=== PATIENT | female | born 1930 | race African-American/Black ===

== ENCOUNTER 2018-07-08 01:42 | Inpatient (IN) | payer OTHER ==
--- NOTE | 2018-07-08 01:55 | PDOC ---
History of Present Illness - General Chief Complaint: Nausea/Vomiting Stated Complaint: VOMITTING Time Seen by Provider: 07/08/18 01:49 - History of Present Illness Initial Comments: 07/08/18 01:54 87 yo F with h/o DM, HLD, HTN, pacemaker placement, Dementia who p/w vomiting. Pt. non verbal, non communicative, severe dementia. Daughter (primary tip cementer ) at bedside to assist in report. Patient with 3 episodes of non bilious, non bloody emesis today following PO intake today. Patient with last bowel movement Wednesday07/03/18, but intermittent fecal discharge.+Normal flatulence. Patient in normal state of health yesterday. Patient at baseline mental status per daughter. Incontinent at baseline. Daily home health aide to assist patient with IADL,ADL's. Patient lives with daughter. Denies F/C, CP, SOB, Cough, Wheezing, Leg swelling, Urinary complaints, hematuria, BPR, LOC, weakness. PMHx: as noted above. Denies h/o abdominal surgery. ROS: as noted SHx: Distant smoking history. Denies h/o IVDA. Denies Etoh Allergies: NKDA Past History - Past Medical History Allergies/Adverse Reactions: Allergies Allergy/AdvReac Type Severity Reaction Status Date / Time No Known Allergies Allergy Verified 09/24/16 20:15 Home Medications: Ambulatory Orders Memantine HCl [Namenda -] 10 mg PO BID 11/05/14 Atorvastatin Ca [Lipitor] 20 mg PO HS 06/25/15 Ferrous Sulfate 1 tab PO DAILY 01/23/16 Acetaminophen [Tylenol .Regular Strength -] 325 mg PO BID 07/14/16 Brimonidine Tartrate [Alphagan 0.15% -] 1 drop OD BID 07/14/16 Latanoprost 0.005% Eye Drops [Xalatan 0.005% Eye Drops -] 1 drop OU HS 07/14/16 Metoprolol Tartrate 25 mg PO TID PRN 07/14/16 Sennosides [Senna -] 1 tab PO HS 07/14/16 Clonidine HCl 0.1 mg PO HS 07/08/18 Anemia: No Asthma: No Cancer: No Cardiac Disorders: No CVA: No COPD: No CHF: No Dementia: Yes Diabetes: No GI Disorders: Yes (constipation) Disorders: Yes (uti/bladder infection) HTN: Yes Hypercholesterolemia: Yes Liver Disease: No Seizures: Yes Thyroid Disease: No - Surgical History Cardiac Surgery: Yes (pacemaker insertion) - Immunization History Immunization Up to Date: Yes - Suicide/Smoking/Psychosocial Hx Smoking History: Never smoked Have you smoked in the past 12 months: No Number of Cigarettes Smoked Daily: 0 If you are a former smoker, when did you quit?: 40 yr ago Hx Alcohol Use: No Drug/Substance Use Hx: No Substance Use Type: None Hx Substance Use Treatment: No Review of Systems - Review of Systems Comments:: 07/08/18 01:54 Unable to obtain 13 point ROS inspection d/t mental state. *Physical Exam - Physical Exam Comments: 07/08/18 01:55 GENERAL: Awake, alert, in no acute distress. Non verbal, non communicative. HEAD: No signs of trauma, normocephalic, atraumatic EYES: PERRLA, EOMI, sclera anicteric, conjunctiva clear ENT: Auricles normal inspection, hearing grossly normal, nares patent, oropharynx clear without exudates. Moist mucosa NECK: Normal ROM, supple, no lymphadenopathy, JVD, or masses LUNGS: No distress, speaks full sentences, clear to auscultation bilaterally HEART: Regular rate and rhythm, normal S1 and S2, no murmurs, rubs or gallops, peripheral pulses normal and equal bilaterally. ABDOMEN: Soft, Mild diffuse abdominal ttp. Normoactive bowel sounds. No guarding, no rebound. No masses EXTREMITIES : Normal inspection, Normal range of motion, no edema. No clubbing or cyanosis. NEUROLOGICAL: Cranial nerves II through XII grossly intact. SKIN: Warm, Dry, normal turgor, no rashes or lesions noted ED Treatment Course - LABORATORY CBC & Chemistry Diagram: 07/08/18 02:50 07/08/18 03:30 Medical Decision Making - Medical Decision Making 07/08/18 02:14 87 yo F with h/o DM, HLD, HTN, Dementia ( non verbal, non communicative) who p/ w vomiting. HR 131, Temp 97, BP 205/101, O2 96 % RA. + Constipation, with scant watery stools. R/o SBO. CT AP to assess for intrabdominal pathology. Will assess for electrolyte abnml, toxic and metabolic derangements, acid base disturbances, and infection. ED Course: CBC,CMP, Cardiac, LA, Coags, Urine Cx. Blood Cx. VBG, NS EKG, CXR 07/08/18 02:30 EKG: Sinus tachycardia, with left anterior fascicular block. + LVH. Normal interval duration. 07/08/18 03:31 LA: 1.9 WBC: 11.8 07/08/18 04:42 CBC,CMP: Unremarkable Trop: Neg 07/08/18 06:40 Patient signed out to day team. Pending CT AP. *DC/Admit/Observation/Transfer Diagnosis at time of Disposition: Dementia Qualifiers: Dementia behavioral disturbance: without behavioral disturbance Hypertension Qualifiers: Hypertension type: essential hypertension Qualified Code(s): I10 - Essential ( primary) hypertension - Discharge Dispostion Condition at time of disposition: Fair Decision to Admit order: Yes - Referrals - Patient Instructions - Post Discharge Activity
[2018-07-08 02:03] VITALS: BMI 25.4
[2018-07-08] MEDS ORDERED: SODIUM CHLORIDE 0.9% 1000 ML INFUS.BAG IV ONE (02:22)
[2018-07-08 03:02] LABS: BASO % 0.5 % (0-2.0); EOS % 0.3 % (0-4.5); HEMATOCRIT 41.3 % (32.4-45.2); HEMOGLOBIN 13.7 GM/dL (10.7-15.3); LYMPH % 14.7 % (8-40); MCH 28.9 pg (25.7-33.7); MCHC 33.1 g/dl (32.0-36.0); MEAN CELL VOLUME 87.1 fl (80-96); MEAN PLT VOLUME 9.2 fl (7.5-11.1); MONO % 6.8 % (3.8-10.2); NEUT % 77.7 % (42.8-82.8); PLATELET COUNT 165 K/MM3 (134-434); RBC 4.74 M/mm3 (3.60-5.2); RDW 13.8 % (11.6-15.6); WHITE BLOOD COUNT 11.8 K/mm3 (4.0-10.0)
[2018-07-08 03:12] LABS: INR 1.08 (0.83-1.09); PROTHROMBIN TIME (PATIENT) 12.2 SEC (9.7-13.0)
[2018-07-08 03:23] LABS: PLATELET ESTIMATE DECREASED
[2018-07-08 03:36] LABS: VENOUS PH 7.42 (7.32-7.42); VENOUS PO2 38.7 mmHg (28-48)
--- NOTE | 2018-07-08 03:52 | PDOC ---
Attending Attestation - Resident Resident Name: Johnnie Puri - ED Attending Attestation I have performed the following: I have examined & evaluated the patient, The case was reviewed & discussed with the resident, I agree w/resident's findings & plan - HPI HPI: 07/08/18 03:48 87-year-old female history of dementia, diabetes, hypertension brought in by daughter with reports of vomiting and decreased PO intake today. No fevers or chills, constipated for 3 days but passing flatus, no surgical history. - Physicial Exam PE: 07/08/18 03:49 elevated bp, tachycardia, no fever alert, minimally verbal at baseline abd soft but distended, tender R>L with guarding. BS decreased - Critical Care Time Total Critical Care Time: 30 Critical Care Statement: The care of this patient involved high complexity decision making to prevent further life threatening deterioration of the patient 's condition and/or to evaluate & treat vital organ system(s) failure or risk of failure. - Medical Decision Making 07/08/18 03:50 87y/o F DM and dementia with weakness, decreased PO intake, vomiting today. Here , elevated BP likely 2/2 not tolerating meds, tachycardia likely 2/2 volume depletion. Tender abdomen, r/o obstruction, ischemia, infectious process. labs, ua ivf, anti-emetic, BP control ctap, cxr admit Heart Score/ECG Review #1 ECG reviewed & interpreted by me at: 02:16 General ECG Interpretation: Sinus Rhythm (tachy at 131), Normal Intervals (LAFB , LVH), No acute ischemic changes
[2018-07-08 04:07] LABS: ALBUMIN 3.8 g/dl (3.4-5.0); ANION GAP 10 MMOL/L (8-16); BILIRUBIN,TOTAL 0.5 mg/dL (0.2-1.0); BLOOD UREA NITROGEN 17 mg/dL (7-18); CALCIUM 9.2 mg/dL (8.5-10.1); CHLORIDE 108 mmol/L (98-107); CO2 26 mmol/L (21-32); CREATININE 0.9 mg/dL (0.55-1.02); GLUCOSE,RANDOM 101 mg/dL (74-106); POTASSIUM 3.6 mmol/L (3.5-5.1); SGOT/AST 17 U/L (15-37); SGPT/ALT 19 U/L (12-78); SODIUM 144 mmol/L (136-145); TOT PROT 8.4 g/dl (6.4-8.2)
[2018-07-08 04:10] LABS: ALK PHOS 132 U/L (45-117)
--- NOTE | 2018-07-08 07:31 | PDOC ---
*Physical Exam - Vital Signs Last Vital Signs Temp Pulse Resp BP Pulse Ox 98.7 F 113 H 18 206/118 94 L 07/08/18 07:12 07/08/18 07:12 07/08/18 07:12 07/08/18 07:12 07/08/18 07:12 - Physical Exam Comments: 07/08/18 08:05 GEN- Nonverbal RS- CTA B/L CV- RRR No MRG S1 S2 ABD- Slightly distended, no rigidity, does not grimace upon palpation EXT- Onychomycosis b/l feet, No CCE ED Treatment Course - LABORATORY CBC & Chemistry Diagram: 07/10/18 06:00 07/10/18 06:00 - ADDITIONAL ORDERS Additional order review: Laboratory Results 07/08/18 07/08/18 07/08/18 03:30 03:30 02:50 PT with INR INR VBG pH 7.42 POC VBG pCO2 39.0 POC VBG pO2 38.7 Mixed VBG HCO3 24.9 Sodium 144 Cancelled Potassium 3.6 Cancelled Chloride 108 H Cancelled Carbon Dioxide 26 Cancelled Anion Gap 10 Cancelled BUN 17 Cancelled Creatinine 0.9 Cancelled Creat Clearance w eGFR 59.09 Cancelled Random Glucose 101 Cancelled Lactic Acid Calcium 9.2 Cancelled Total Bilirubin 0.5 Cancelled AST 17 Cancelled ALT 19 Cancelled Alkaline Phosphatase 132 H Cancelled Creatine Kinase 46 Troponin I < 0.02 Total Protein 8.4 H Cancelled Albumin 3.8 Cancelled 07/08/18 07/08/18 07/08/18 02:50 02:50 02:50 PT with INR 12.20 INR 1.08 VBG pH POC VBG pCO2 POC VBG pO2 Mixed VBG HCO3 Sodium Potassium Chloride Carbon Dioxide Anion Gap BUN Creatinine Creat Clearance w eGFR Random Glucose Lactic Acid 1.9 Calcium Total Bilirubin AST ALT Alkaline Phosphatase Creatine Kinase Cancelled Troponin I Cancelled Total Protein Albumin 07/08/18 02:50 RBC 4.74 MCV 87.1 MCHC 33.1 RDW 13.8 MPV 9.2 D Neutrophils % 77.7 Lymphocytes % 14.7 Monocytes % 6.8 Eosinophils % 0.3 Basophils % 0.5 - Medications Given in the ED: ED Medications Discontinued Medications Generic Name Dose Route Start Last Admin Trade Name Freq PRN Reason Stop Dose Admin Sodium Chloride 1,179 ml 07/08/18 02:22 09/07/18 03:40 Normal Saline - 20 ml/kg (1179 ml) 07/08/18 02:23 1,179 ml IV Administration NOW ONE Medical Decision Making - Medical Decision Making 07/08/18 07:31 Received Sign out from Dr Garcia Randolph. 07/08/18 07:39 CT/ABD Pelvis Pending. 07/08/18 07:45 1 G IV Tylenol ordered CT ABD/Pelvis- Neg for obstruction. *DC/Admit/Observation/Transfer Diagnosis at time of Disposition: Dementia Qualifiers: Dementia behavioral disturbance: without behavioral disturbance Hypertension Qualifiers: Hypertension type: essential hypertension Qualified Code(s): I10 - Essential ( primary) hypertension - Discharge Dispostion Condition at time of disposition: Fair - Prescriptions - Referrals - Patient Instructions - Post Discharge Activity
[2018-07-08] MEDS ORDERED: ACETAMINOPHEN 1000 MG/100 ML VIAL (NON FORMULARY) IVPB ONE (07:44)
[2018-07-08] MEDS ORDERED: ACETAMINOPHEN INJECTION 100 ML IVPB ONE (07:51)
--- NOTE | 2018-07-08 09:05 | EKG ---
Test Reason : Blood Pressure : / mmHG Vent. Rate : 131 BPM Atrial Rate : 131 BPM P-R Int : 172 ms QRS Dur : 092 ms QT Int : 330 ms P-R-T Axes : -22 -50 082 degrees QTc Int : 487 ms SINUS TACHYCARDIA LEFT ANTERIOR FASCICULAR BLOCK LEFT VENTRICULAR HYPERTROPHY WITH REPOLARIZATION ABNORMALITY CANNOT RULE OUT SEPTAL INFARCT , AGE UNDETERMINED ABNORMAL ECG Confirmed by SANJEEV SIBLEY MD ([id number]) on 07/08/2018 9:04:58 AM Referred By: Confirmed By:SANJEEV SIBLEY MD
--- NOTE | 2018-07-08 10:37 | HP ---
Admitting History and Physical - Primary Care Physician PCP: Pop Hernandez - Admission Chief Complaint: vomiting History of Present Illness: 87 year old female pmh of dementia, htn, hld, ppm, brought in from home by daughter for vomiting. Pt is non verbal and cannot provide history. Daughter who is her asp net mvc developer reports pt has been doing well until yesterday. Pt vomiting non bilious/bloody emesis yesterday afternoon and then again around dinner time after eating. Daughter also noted pt to be rubbing her stomach. She reports pt had dribbling diarrhea last week and she gave her immodium at that time. Her last BM was on Wednesday. Pt usually tolerates pureed/chopped diet at home. Otherwise, daughter denies noticing any abdominal distention, changes in mental status, fever or any other signs. Daughter reports mother is at her baseline. 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 No: AFIB, CAD, CHF - Past Surgical History Past Surgical History: Yes: Permanent Pacemaker - Smoking History Smoking history: Former smoker Have you smoked in the past 12 months: No Aproximately how many cigarettes per day: 0 If you are a former smoker, when did you quit?: 40 yr ago - Alcohol/Substance Use Hx Alcohol Use: No History of Substance Use: reports: None - Social History Usual Living Arrangement: Yes: With Child ADL: Family Assistance History of Recent Travel: No Home Medications - Allergies Allergies/Adverse Reactions: Allergies Allergy/AdvReac Type Severity Reaction Status Date / Time No Known Allergies Allergy Verified 09/24/16 20:15 - Home Medications Home Medications: Ambulatory Orders Memantine HCl [Namenda -] 10 mg PO BID 11/05/14 Atorvastatin Ca [Lipitor] 20 mg PO HS 06/25/15 Ferrous Sulfate 1 tab PO DAILY 01/23/16 Acetaminophen [Tylenol .Regular Strength -] 325 mg PO BID 07/14/16 Brimonidine Tartrate [Alphagan 0.15% -] 1 drop OD BID 07/14/16 Latanoprost 0.005% Eye Drops [Xalatan 0.005% Eye Drops -] 1 drop OU HS 07/14/16 Metoprolol Tartrate 25 mg PO TID PRN 07/14/16 Sennosides [Senna -] 1 tab PO HS 07/14/16 Clonidine HCl 0.1 mg PO HS 07/08/18 Review of Systems Findings/Remarks: as per hpi Physical Examination Vital Signs: Vital Signs Temperature 98.7 F 07/08/18 07:12 Pulse Rate 113 H 07/08/18 07:12 Respiratory Rate 18 07/08/18 07:12 Blood Pressure 206/118 07/08/18 07:12 O2 Sat by Pulse Oximetry (%) 94 L 07/08/18 07:12 Constitutional: Yes: No Distress, Calm, Thin Cardiovascular: Yes: Regular Rate and Rhythm. No: Murmur Respiratory: Yes: Regular, CTA Bilaterally, Diminished (limited exam, pt not taking deep breaths). No: Rales, Rhonchi, SOB, Tachypnea, Wheezes Gastrointestinal: Yes: Normal Bowel Sounds, Soft. No: Distention, Tenderness Renal/: Yes: Incontinence Edema: No Neurological: Yes: Confusion Psychiatric: Yes: Alert Labs: CBC, BMP 07/08/18 02:50 07/08/18 03:30 Imaging - Results Cat Scan: Report Reviewed (Abd- rectal fecal impaction with rectal thickening) EKG: Report Reviewed (NSR) Problem List - Problems (1) Vomiting Assessment/Plan: multiple episodes of non bilious/bloody vomiting yesterday CT result as above, no obstruction suspect secondary to fecal impaction dribbling diarrhea- suspect overflow administer enema colace/senna IVF x 24 hrs diet per speech eval recs monitor Code(s): R11.10 - VOMITING, UNSPECIFIED (2) Fecal impaction in rectum Assessment/Plan: as above Code(s): K56.41 - FECAL IMPACTION (3) Dehydration Assessment/Plan: 2/2 vomiting tachycardic, bp controlled IVF monitor Code(s): E86.0 - DEHYDRATION (4) Leukocytosis Assessment/Plan: mild, suspect 2/2 dehydration infectious etiology unlikely UA/UC/ blood cultures pending chest xray neg monitor Code(s): D72.829 - ELEVATED WHITE BLOOD CELL COUNT, UNSPECIFIED (5) Rebound hypertension Assessment/Plan: BP in 200s/120s in ED which resolved BP again 200s/110s on arrival to unit, rapid response called, pt received labetalol 10mg Head CT ordered suspect due to pt not taking clonidine yesterday clonidine 0.1mg x 1 cardiology consulted transfer to tele monitor Code(s): I15.8 - OTHER SECONDARY HYPERTENSION (6) Dementia Assessment/Plan: at baseline dysphagia precautions diet per speech eval continue namenda Code(s): F03.90 - UNSPECIFIED DEMENTIA WITHOUT BEHAVIORAL DISTURBANCE Qualifiers: Dementia behavioral disturbance: without behavioral disturbance (7) Hypercholesteremia Assessment/Plan: stable continue statin Code(s): E78.0 - PURE HYPERCHOLESTEROLEMIA * DO NOT USE * (8) Hypertension Assessment/Plan: rebound htn due to missing meds yesterday continue clonidine, metoprolol Code(s): I10 - ESSENTIAL (PRIMARY) HYPERTENSION Qualifiers: Hypertension type: essential hypertension Qualified Code(s): I10 - Essential (primary) hypertension Assessment/Plan Dispo: Home
[2018-07-08] MEDS ORDERED: SODIUM CHLORIDE 1,000 ML IV SCH (12:30)
[2018-07-08 13:21] LABS: URINE APPEARANCE CLEAR; URINE BILIRUBIN NEGATIVE (<2.0 mg/dL); URINE COLOR STRAW; URINE GLUCOSE (UA) NEGATIVE (NEGATIVE); URINE KETONE NEGATIVE (NEGATIVE); URINE LEUK ESTERASE NEGATIVE (NEGATIVE); URINE NITRITE NEGATIVE (NEGATIVE); URINE PROTEIN NEGATIVE (NEGATIVE); URINE UROBILINOGEN NEGATIVE mg/dL (0.2-1.0)
[2018-07-08] MEDS ORDERED: METOPROLOL TARTRATE 25 MG TABLET (FP) PO PRN (13:30)
--- NOTE | 2018-07-08 13:42 | CONSULT ---
Admitting History and Physical - Primary Care Physician PCP: Za Valera - Admission History of Present Illness: Per EMR: 87 yo F with h/o DM, HLD, HTN, pacemaker placement, Dementia who p/w vomiting. Pt. non verbal, non communicative, severe dementia. Daughter (primary relocation counselor ) at bedside to assist in report. Patient with 3 episodes of non bilious, non bloody emesis Patient with last bowel movement Wednesday07/03/18, but intermittent fecal discharge.+Normal flatulence. Patient in normal state of health yesterday. Patient at baseline mental status per daughter. Incontinent at baseline. Daily home health aide to assist patient with IADL,ADL's. Patient lives with daughter. Vomiting /Fecal impaction in rectum Per HONEY LIQUEFIER: Assessment/Plan: multiple episodes of non bilious/bloody vomiting yesterday CT result as above, no obstruction suspect secondary to fecal impaction dribbling diarrhea- suspect overflow administer enema colace/senna IVF x 24 hrs RR today. PMD requested I assess her swallowing.Family report that she is normally verbal, confused, eats very well cooked foods, pureed, and thin water from a straw or spoon. She coughs at times but has not had PNA/Bronchitis. Eyes closed but accepted water from a straw for pt's daughter. History Source: Family Member Limitations to Obtaining History: Clinical Condition - Past Medical History PRODUCT SAFETY LEAD: Yes: Dementia, Syncope Cardiovascular: Yes: HTN, Hyperlipdemia. No: AFIB, CAD, CHF - Past Surgical History Past Surgical History: Yes: Permanent Pacemaker - Smoking History Smoking history: Former smoker Have you smoked in the past 12 months: No Aproximately how many cigarettes per day: 0 If you are a former smoker, when did you quit?: 40 yr ago - Alcohol/Substance Use Hx Alcohol Use: No History of Substance Use: reports: None - Social History ADL: Family Assistance History of Recent Travel: No History - Admission Reason For Visit: DEHYDRATION,AMS,FAILURE TO THRIVE - Diagnostics CT Scan: Report Reviewed (Abd- rectal fecal impaction with rectal thickening) Speech Evaluation - Communication Primary Language: CROATIAN Recommendations - Speech Evaluation, Impression/Plan Impression: Eyes closed but accepted water from a straw for pt's daughter. Swallow was brisk with no overt signs of aspiration. Risk of aspiration if swallow is untimely. - Dysphagia Impressions/Plan Dysphagia Impressions: Ongoing Evaluation *Silent aspiration: cannot be R/O at bedside - Recommendations Diet Consistency: Dysphagia Pureed, Other (If cough,congestion, fever, nectar thick liquid and MBS) Medication Administration: Crushed with applesauce Liquids: Thin Liquids
[2018-07-08] MEDS ORDERED: LABETALOL HCL 5 MG/1 ML (100MG/20 ML VIAL) IVPUSH ONE (13:55)
[2018-07-08] MEDS ORDERED: METOPROLOL TARTRATE 25 MG TABLET (FP) PO SCH ×2 (14:00)
[2018-07-08] MEDS ORDERED: cloNIDine HCL 0.1 MG TABLET PO ONE (14:08)
--- NOTE | 2018-07-08 14:19 | RAPID ---
Physical Examination Vital Signs: Vital Signs Temperature 98.7 F 07/08/18 07:12 Pulse Rate 110 H 07/08/18 12:56 Respiratory Rate 20 07/08/18 12:56 Blood Pressure 111/80 07/08/18 12:56 O2 Sat by Pulse Oximetry (%) 99 07/08/18 12:56 Labs: CBC, BMP 07/08/18 02:50 07/08/18 03:30 Rapid Response - Rapid Response Assessment: Rapid response called at 1:50pm. Nursing reported patient was desaturating at 85 % and BP 210/110. At baseline, patient has advanced dementia. Normally one word response. Admitting team saw patient at the ED in the AM. It was known that patient has not taken her clonidine dose for 2 days. NC increased to 4L. Repeat saturation 99%. General: awake, lethargic Lungs: CTA bilaterally Heart: Tachycardic Abdomen: soft, nondistended Ext: No peripheral edema A: Hypertensive emergency, likely rebound -pt missed 2 days of Clonidine P> -Labetalol 10mg IV push given. Repeat VS: BP168/87, SD 84 Patient is awake, responsive. -Primary team was notified. They arrived at bedside. -Tele -Primary team will follow-up.
[2018-07-08] MEDS: METOPROLOL TARTRATE 25 MG TABLET (FP) PO SCH ×2 (14:44→22:08)
--- NOTE | 2018-07-08 15:35 | CON.CARD ---
Consult Consult Specialty:: Cardiology Referred by:: Yael Reason for Consultation:: hypertension - History of Present Illness Chief Complaint: hypertension History of Present Illness: 87 year old female pmh of dementia, htn, hld, ppm, brought in from home by daughter for vomiting. CT abd shows no obstruction, fecal impaction. Has had elevated BP, on clonidine at home, missed a dose. On initial presentation to ED BP 200s/120s, resolved, today rapid response was called this afternoon for BP 200s/110s. Received clonidine 0.1 mg x1 and 10 mg IV labetolol as well as metoprolol 25 mg. She takes clonidine regularly at home 0.1 mg HS and metoprolol PRN if BP elevated. Sees Dr. Waters in clinic, last seen 03/2018. Noted to have labile hypertension, autonomic dysfunction with frequent low BP. - Past Medical History INTELLIGENCE OPERATIONS SPECIALIST: Yes: Dementia, Syncope Cardio/Vascular: Yes: HTN, Hyperlipdemia. No: AFIB, CAD, CHF - Past Surgical History Past Surgical History: Yes: Permanent Pacemaker - Alcohol/Substance Use Hx Alcohol Use: No History of Substance Use: reports: None - Smoking History Smoking history: Former smoker Have you smoked in the past 12 months: No Aproximately how many cigarettes per day: 0 If you are a former smoker, when did you quit?: 40 yr ago - Social History Usual Living Arrangement: With Child ADL: Family Assistance History of Recent Travel: No Home Medications - Allergies Allergies/Adverse Reactions: Allergies Allergy/AdvReac Type Severity Reaction Status Date / Time No Known Allergies Allergy Verified 09/24/16 20:15 - Home Medications Home Medications: Ambulatory Orders Memantine HCl [Namenda -] 10 mg PO BID 11/05/14 Atorvastatin Ca [Lipitor] 20 mg PO HS 06/25/15 Ferrous Sulfate 1 tab PO DAILY 01/23/16 Acetaminophen [Tylenol .Regular Strength -] 325 mg PO BID 07/14/16 Brimonidine Tartrate [Alphagan 0.15% -] 1 drop OD BID 07/14/16 Latanoprost 0.005% Eye Drops [Xalatan 0.005% Eye Drops -] 1 drop OU HS 07/14/16 Metoprolol Tartrate 25 mg PO TID PRN 07/14/16 Sennosides [Senna -] 1 tab PO HS 07/14/16 Clonidine HCl 0.1 mg PO HS 07/08/18 Family Disease History - Family Disease History Family History: Unremarkable Review of Systems Unable to obtain ROS, reason: dementia Vital Signs: Vital Signs Temperature 98.6 F 07/08/18 13:45 Pulse Rate 99 H 07/08/18 14:00 Respiratory Rate 19 07/08/18 14:00 Blood Pressure 174/133 07/08/18 14:00 O2 Sat by Pulse Oximetry (%) 99 07/08/18 12:56 Constitutional: Yes: Well Nourished, No Distress, Calm Eyes: Yes: Conjunctiva Clear, EOM Intact HENT: Yes: Atraumatic, Normocephalic Neck: Yes: Supple, Trachea Midline Respiratory: Yes: Regular, CTA Bilaterally Gastrointestinal: Yes: Normal Bowel Sounds, Soft Cardiovascular: Yes: Regular Rate and Rhythm JVD: No Heart Sounds: Yes: S1, S2 Musculoskeletal: Yes: WNL Extremities: Yes: WNL Edema: No Edema: LLE: 2+, RLE: 2+ Peripheral Pulses: 2+ Left Doralis Pedis, 2+ Right Dorsalis Pedis Integumentary: Yes: WNL Neurological: Yes: Alert, Oriented ...Motor Strength: WNL Psychiatric: Yes: Alert, Oriented - Other Data Labs, Other Data: CBC, BMP 07/08/18 02:50 07/08/18 03:30 INR, PTT INR 1.08 (0.83-1.09) 07/08/18 02:50 Troponin, BNP 07/08/18 07/08/18 02:50 03:30 Troponin I Cancelled < 0.02 Troponin, BNP 07/08/18 07/08/18 02:50 03:30 Troponin I Cancelled < 0.02 Assessment/Plan echo 06/2015 nl LVef, nl RV, mild , mild TR, RVSP 30-40mmHg carotids 11/2014 significant plaque burden, velocities unable to obtain on L, R normal velocity with visual concern for 70% EKG:sinus tachycardia, LVH tele: sinus, 70s 87 year old female pmh of dementia, htn, hld, ppm, brought in from home by daughter for vomiting, with HTN HTN - history of labile HTN - continue home clonidine, metoprolol 25 mg TID with holding parameters (at home is on PRN metoprolol for elevated BP) - would avoid increasing meds as she has history of low BPs and syncope vomiting - likely in setting of fecal impaction, manage per primary team PPM - stable at last device check HLD - continue statin
[2018-07-08] MEDS ORDERED: cloNIDine HCL 0.1 MG TABLET PO SCH (22:00)
[2018-07-08] MEDS ORDERED: PT OWN MED DRAWER 7, Y5N ONE ×2 (22:05→23:16)
[2018-07-08] MEDS: DOCUSATE SODIUM 100 MG CAPSULE (FP) PO SCH ×2 (22:07→23:47)
[2018-07-08] MEDS: SENNOSIDES 8.6MG TABLET (FP) PO SCH (22:07)
[2018-07-08] MEDS: MEMANTINE HCL 10 MG TABLET (FP) PO SCH (22:08)
[2018-07-08] MEDS: ATORVASTATIN CA 20 MG TABLET (FP) PO SCH (22:08)
[2018-07-08] MEDS: HEPARIN NA (PORCINE) 5,000 UNITS/ML 1ML VIAL SQ SCH (22:08)
[2018-07-08] MEDS: LATANOPROST 0.005% OPHTH SOLN 2.5ML BOTTLE OU SCH (23:00)
[2018-07-09] MEDS: DOCUSATE SODIUM 100 MG CAPSULE (FP) PO SCH (06:48)
[2018-07-09] MEDS: METOPROLOL TARTRATE 25 MG TABLET (FP) PO SCH ×3 (06:48→22:48)
[2018-07-09 07:03] LABS: BASO % 0.4 % (0-2.0); EOS % 0.8 % (0-4.5); HEMATOCRIT 36.9 % (32.4-45.2); HEMOGLOBIN 12.4 GM/dL (10.7-15.3); LYMPH % 18.8 % (8-40); MCH 29.2 pg (25.7-33.7); MCHC 33.7 g/dl (32.0-36.0); MEAN CELL VOLUME 86.7 fl (80-96); MEAN PLT VOLUME 8.5 fl (7.5-11.1); MONO % 9.7 % (3.8-10.2); NEUT % 70.3 % (42.8-82.8); PLATELET COUNT 214 K/MM3 (134-434); RBC 4.26 M/mm3 (3.60-5.2); RDW 13.8 % (11.6-15.6); WHITE BLOOD COUNT 6.6 K/mm3 (4.0-10.0)
[2018-07-09 07:30] LABS: ALBUMIN 3.5 g/dl (3.4-5.0); BLOOD UREA NITROGEN 13 mg/dL (7-18); CHLORIDE 107 mmol/L (98-107); POTASSIUM 3.7 mmol/L (3.5-5.1); SODIUM 143 mmol/L (136-145)
[2018-07-09 07:34] LABS: ALK PHOS 112 U/L (45-117); ANION GAP 8 MMOL/L (8-16); BILIRUBIN,TOTAL 0.6 mg/dL (0.2-1.0); CALCIUM 8.7 mg/dL (8.5-10.1); CO2 28 mmol/L (21-32); CREATININE 0.8 mg/dL (0.55-1.02); GLUCOSE,RANDOM 94 mg/dL (74-106); MAGNESIUM 1.9 mg/dL (1.8-2.4); PHOSPHOROUS 2.5 mg/dL (2.5-4.9); SGOT/AST 23 U/L (15-37); SGPT/ALT 16 U/L (12-78); TOT PROT 7.6 g/dl (6.4-8.2)
[2018-07-09] MEDS ORDERED: LABETALOL HCL 5 MG/1 ML (100MG/20 ML VIAL) IVPUSH ONE (08:58)
[2018-07-09] MEDS ORDERED: PT OWN MED DRAWER 7, Y5N ONE (09:47)
[2018-07-09] MEDS: HEPARIN NA (PORCINE) 5,000 UNITS/ML 1ML VIAL SQ SCH ×2 (09:48→22:47)
[2018-07-09] MEDS: POLYETHYLENE GLYCOL 3350 119 GM BTL PO SCH (09:49)
[2018-07-09] MEDS: MEMANTINE HCL 10 MG TABLET (FP) PO SCH ×2 (09:49→22:48)
[2018-07-09] MEDS: DOCUSATE NA 100 MG/10 ML UNIT-DOSE CUPS PO SCH (09:51)
--- NOTE | 2018-07-09 10:41 | PN ---
Progress Note, Physician History of Present Illness: No events overnight Tele: St to 120s Elevated BP this AM Tolerating PO meds - Current Medication List Current Medications: Active Medications Atorvastatin Calcium (Lipitor -) 20 mg PO HS [facility] Last Admin: 07/08/18 22:08 Dose: 20 mg Clonidine (Catapres -) 0.1 mg PO HS [facility] Docusate Sodium (Colace Liquid -) 300 mg PO DAILY [facility] Last Admin: 07/09/18 09:51 Dose: 300 mg Heparin Sodium (Porcine) (Heparin -) 5,000 unit SQ BID [facility] Last Admin: 07/09/18 09:48 Dose: 5,000 unit Sodium Chloride (Normal Saline -) 1,000 mls @ 50 mls/hr IV ASDIR [facility] Stop: 07/09/18 12:24 Last Admin: 07/08/18 22:09 Dose: 50 mls/hr Latanoprost (Xalatan 0.005% Eye Drops -) 1 drop OU [facility] Last Admin: 07/08/18 23:00 Dose: 1 drop Memantine (Namenda -) 10 mg PO BID [facility] Last Admin: 07/09/18 09:49 Dose: 10 mg Metoprolol Tartrate (Lopressor -) 25 mg PO TID [facility] Last Admin: 07/09/18 06:48 Dose: 25 mg Polyethylene Glycol (Miralax (For Daily Use) -) 17 gm PO DAILY [facility] Last Admin: 07/09/18 09:49 Dose: 17 gm Senna (Senna -) 2 tab PO [facility] Last Admin: 07/08/18 22:07 Dose: 2 tab - Objective Vital Signs: Vital Signs Temperature 97.2 F L 07/09/18 06:00 Pulse Rate 79 07/09/18 06:00 Respiratory Rate 18 07/09/18 06:00 Blood Pressure 162/116 07/09/18 06:00 O2 Sat by Pulse Oximetry (%) 100 07/08/18 21:00 Constitutional: Yes: No Distress, Calm Eyes: Yes: WNL HENT: Yes: WNL Neck: Yes: WNL Cardiovascular: Yes: Regular Rate and Rhythm, Murmur Respiratory: Yes: Rhonchi Gastrointestinal: Yes: Soft Edema: No Labs: CBC, BMP 07/09/18 06:20 07/09/18 06:20 INR, PTT INR 1.08 (0.83-1.09) 07/08/18 02:50 Assessment/Plan 87 year old female pmh of dementia, htn, hld, ppm, brought in from home by daughter for vomiting, with HTN HTN - history of labile HTN - continue home PO clonidine, metoprolol 25 mg TID with holding parameters (at home is on PRN metoprolol for elevated BP) - would avoid increasing meds as she has history of low BPs and syncope. -Receiving PRN Labetelol, continue vomiting - likely in setting of fecal impaction, manage per primary team PPM - stable at last device check HLD - continue statin
--- NOTE | 2018-07-09 11:05 | PN ---
Progress Note, Physician History of Present Illness: BP very elevated this morning (200/110), so receiving IV labetalol dose. Patient shakes head and quietly whispers "no" when asked about abdmoinal pain. Has not been able to swallow colace capsules. Still to get Miralax solution. - Current Medication List Current Medications: Active Medications Atorvastatin Calcium (Lipitor -) 20 mg PO [facility] Last Admin: 07/08/18 22:08 Dose: 20 mg Clonidine (Catapres -) 0.1 mg PO [facility] Docusate Sodium (Colace Liquid -) 300 mg PO DAILY [facility] Last Admin: 07/09/18 09:51 Dose: 300 mg Heparin Sodium (Porcine) (Heparin -) 5,000 unit SQ BID [facility] Last Admin: 07/09/18 09:48 Dose: 5,000 unit Sodium Chloride (Normal Saline -) 1,000 mls @ 50 mls/hr IV ASDIR [facility] Stop: 07/09/18 12:24 Last Admin: 07/08/18 22:09 Dose: 50 mls/hr Latanoprost (Xalatan 0.005% Eye Drops -) 1 drop OU [facility] Last Admin: 07/08/18 23:00 Dose: 1 drop Memantine (Namenda -) 10 mg PO BID [facility] Last Admin: 07/09/18 09:49 Dose: 10 mg Metoprolol Tartrate (Lopressor -) 25 mg PO TID [facility] Last Admin: 07/09/18 06:48 Dose: 25 mg Polyethylene Glycol (Miralax (For Daily Use) -) 17 gm PO DAILY [facility] Last Admin: 07/09/18 09:49 Dose: 17 gm Senna (Senna -) 2 tab PO [facility] Last Admin: 07/08/18 22:07 Dose: 2 tab - Objective Vital Signs: Vital Signs Temperature 97.2 F L 07/09/18 06:00 Pulse Rate 79 07/09/18 06:00 Respiratory Rate 18 07/09/18 06:00 Blood Pressure 162/116 07/09/18 06:00 O2 Sat by Pulse Oximetry (%) 100 07/08/18 21:00 Constitutional: Yes: No Distress, Calm Neck: Yes: Supple, Trachea Midline Cardiovascular: Yes: Regular Rate and Rhythm, S1, S2. No: Murmur Respiratory: Yes: Regular, CTA Bilaterally Gastrointestinal: Yes: Normal Bowel Sounds, Distention (softly). No: Tenderness , Rebound Edema: No Labs: CBC, BMP 07/09/18 06:20 07/09/18 06:20 INR, PTT INR 1.08 (0.83-1.09) 07/08/18 02:50 Assessment/Plan Current Active Problems Hypertensive urgency Gastroenteritis Dehydration (Acute) Dementia (Acute) Fecal impaction in rectum (Acute) Leukocytosis (Acute) -to get labeltalol IV today, then follow BP on clonidine and metoprolol dosing ( very labile BP in the past, so caution about increasing dose of clonidine) -cont to treat fecal impaction (switching colace to liquid, cont miralax)
[2018-07-09] MEDS: ATORVASTATIN CA 20 MG TABLET (FP) PO SCH (22:48)
[2018-07-09] MEDS: SENNOSIDES 8.6MG TABLET (FP) PO SCH (22:48)
[2018-07-09] MEDS: cloNIDine HCL 0.1 MG TABLET PO SCH (22:48)
[2018-07-09] MEDS: LATANOPROST 0.005% OPHTH SOLN 2.5ML BOTTLE OU SCH (22:48)
[2018-07-10] MEDS: METOPROLOL TARTRATE 25 MG TABLET (FP) PO SCH ×3 (06:55→22:10)
[2018-07-10 07:04] LABS: BASO % 0.8 % (0-2.0); EOS % 1.9 % (0-4.5); HEMATOCRIT 38.6 % (32.4-45.2); HEMOGLOBIN 12.7 GM/dL (10.7-15.3); LYMPH % 31.4 % (8-40); MCH 28.6 pg (25.7-33.7); MCHC 32.9 g/dl (32.0-36.0); MEAN CELL VOLUME 87.1 fl (80-96); MEAN PLT VOLUME 8.8 fl (7.5-11.1); MONO % 14.5 % (3.8-10.2); NEUT % 51.4 % (42.8-82.8); PLATELET COUNT 154 K/MM3 (134-434); RBC 4.43 M/mm3 (3.60-5.2); RDW 13.7 % (11.6-15.6); WHITE BLOOD COUNT 4.8 K/mm3 (4.0-10.0)
[2018-07-10 07:51] LABS: ALBUMIN 3.1 g/dl (3.4-5.0); ALK PHOS 101 U/L (45-117); ANION GAP 9 MMOL/L (8-16); BILIRUBIN,TOTAL 0.5 mg/dL (0.2-1.0); BLOOD UREA NITROGEN 13 mg/dL (7-18); CALCIUM 8.8 mg/dL (8.5-10.1); CHLORIDE 108 mmol/L (98-107); CO2 27 mmol/L (21-32); CREATININE 0.9 mg/dL (0.55-1.02); GLUCOSE,RANDOM 82 mg/dL (74-106); POTASSIUM 3.7 mmol/L (3.5-5.1); SGOT/AST 23 U/L (15-37); SGPT/ALT 15 U/L (12-78); SODIUM 144 mmol/L (136-145); TOT PROT 6.9 g/dl (6.4-8.2)
--- NOTE | 2018-07-10 09:47 | PN ---
Progress Note, Physician History of Present Illness: No events or complaints today TEle: NSR at 77, ST to 120s - Current Medication List Current Medications: Active Medications Atorvastatin Calcium (Lipitor -) 20 mg PO [facility] Last Admin: 07/09/18 22:48 Dose: 20 mg Clonidine (Catapres -) 0.1 mg PO HS [facility] Last Admin: 07/09/18 22:48 Dose: 0.1 mg Docusate Sodium (Colace Liquid -) 300 mg PO DAILY [facility] Last Admin: 07/09/18 09:51 Dose: 300 mg Heparin Sodium (Porcine) (Heparin -) 5,000 unit SQ BID [facility] Last Admin: 07/09/18 22:47 Dose: 5,000 unit Latanoprost (Xalatan 0.005% Eye Drops -) 1 drop OU [facility] Last Admin: 07/09/18 22:48 Dose: 1 drop Memantine (Namenda -) 10 mg PO BID [facility] Last Admin: 07/09/18 22:48 Dose: 10 mg Metoprolol Tartrate (Lopressor -) 25 mg PO TID [facility] Last Admin: 07/10/18 06:55 Dose: 25 mg Polyethylene Glycol (Miralax (For Daily Use) -) 17 gm PO DAILY [facility] Last Admin: 07/09/18 09:49 Dose: 17 gm Senna (Senna -) 2 tab PO [facility] Last Admin: 07/09/18 22:48 Dose: 2 tab - Objective Vital Signs: Vital Signs Temperature 97.9 F 07/10/18 06:00 Pulse Rate 64 07/10/18 06:00 Respiratory Rate 16 07/10/18 06:00 Blood Pressure 100/62 07/10/18 06:00 O2 Sat by Pulse Oximetry (%) 100 07/09/18 21:00 Constitutional: Yes: No Distress, Calm Eyes: Yes: WNL HENT: Yes: WNL Neck: Yes: WNL Cardiovascular: Yes: Regular Rate and Rhythm Respiratory: Yes: CTA Bilaterally Gastrointestinal: Yes: Normal Bowel Sounds Musculoskeletal: Yes: WNL Extremities: Yes: WNL Edema: No Labs: CBC, BMP 07/10/18 06:00 07/10/18 06:00 INR, PTT INR 1.08 (0.83-1.09) 07/08/18 02:50 Assessment/Plan 87 year old female pmh of dementia, htn, hld, ppm, brought in from home by daughter for vomiting, with HTN HTN - history of labile HTN - continue home PO clonidine, metoprolol 25 mg TID with holding parameters (at home is on PRN metoprolol for elevated BP) - would avoid increasing meds as she has history of low BPs and syncope. -BP remains very labile, Receiving PRN Labetelol, continue vomiting - likely in setting of fecal impaction, manage per primary team PPM - stable at last device check HLD - continue statin
[2018-07-10] MEDS ORDERED: PT OWN MED DRAWER 7, Y5N ONE ×2 (10:30→22:09)
[2018-07-10] MEDS: DOCUSATE NA 100 MG/10 ML UNIT-DOSE CUPS PO SCH (10:32)
[2018-07-10] MEDS: HEPARIN NA (PORCINE) 5,000 UNITS/ML 1ML VIAL SQ SCH ×2 (10:32→22:10)
[2018-07-10] MEDS: MEMANTINE HCL 10 MG TABLET (FP) PO SCH ×2 (10:32→22:10)
[2018-07-10] MEDS: POLYETHYLENE GLYCOL 3350 119 GM BTL PO SCH (10:32)
--- NOTE | 2018-07-10 11:39 | PN ---
Progress Note, Physician History of Present Illness: No events overnight. BP lower today (did not need further labetalol). Still appears to grimace with abdominal exam. - Current Medication List Current Medications: Active Medications Atorvastatin Calcium (Lipitor -) 20 mg PO [facility] Last Admin: 07/09/18 22:48 Dose: 20 mg Clonidine (Catapres -) 0.1 mg PO [facility] Last Admin: 07/09/18 22:48 Dose: 0.1 mg Docusate Sodium (Colace Liquid -) 300 mg PO DAILY [facility] Last Admin: 07/10/18 10:32 Dose: 300 mg Heparin Sodium (Porcine) (Heparin -) 5,000 unit SQ BID [facility] Last Admin: 07/10/18 10:32 Dose: 5,000 unit Latanoprost (Xalatan 0.005% Eye Drops -) 1 drop OU [facility] Last Admin: 07/09/18 22:48 Dose: 1 drop Memantine (Namenda -) 10 mg PO BID [facility] Last Admin: 07/10/18 10:32 Dose: 10 mg Metoprolol Tartrate (Lopressor -) 25 mg PO TID [facility] Last Admin: 07/10/18 06:55 Dose: 25 mg Polyethylene Glycol (Miralax (For Daily Use) -) 17 gm PO DAILY [facility] Last Admin: 07/10/18 10:32 Dose: 17 gm Senna (Senna -) 2 tab PO [facility] Last Admin: 07/09/18 22:48 Dose: 2 tab - Objective Vital Signs: Vital Signs Temperature 97.9 F 07/10/18 06:00 Pulse Rate 64 07/10/18 06:00 Respiratory Rate 16 07/10/18 06:00 Blood Pressure 100/62 07/10/18 06:00 O2 Sat by Pulse Oximetry (%) 100 07/09/18 21:00 Constitutional: Yes: No Distress, Calm Cardiovascular: Yes: Regular Rate and Rhythm, S1, S2. No: Murmur Respiratory: Yes: Regular, CTA Bilaterally. No: Rales, Rhonchi, Wheezes Gastrointestinal: Yes: Normal Bowel Sounds, Soft. No: Distention, Tenderness Edema: No Neurological: Yes: Alert, Oriented Labs: CBC, BMP 07/10/18 06:00 07/10/18 06:00 INR, PTT INR 1.08 (0.83-1.09) 07/08/18 02:50 Assessment/Plan Current Active Problems Hypertensive urgency Gastroenteritis Dehydration (Acute) Dementia (Acute) Fecal impaction in rectum (Acute) Leukocytosis (Acute) -BP appears to be stabilizing, cont current doses clonidine, metoprolol -cont miralax and colace for fecal impaction
[2018-07-10] MEDS: cloNIDine HCL 0.1 MG TABLET PO SCH (22:10)
[2018-07-10] MEDS: LATANOPROST 0.005% OPHTH SOLN 2.5ML BOTTLE OU SCH ×2 (22:10→22:20)
[2018-07-10] MEDS: SENNOSIDES 8.6MG TABLET (FP) PO SCH (22:10)
[2018-07-10] MEDS: ATORVASTATIN CA 20 MG TABLET (FP) PO SCH (22:10)
[2018-07-11] MEDS: METOPROLOL TARTRATE 25 MG TABLET (FP) PO SCH ×3 (05:33→21:25)
[2018-07-11] MEDS ORDERED: PT OWN MED DRAWER 7, Y5N ONE (10:54)
[2018-07-11] MEDS: DOCUSATE NA 100 MG/10 ML UNIT-DOSE CUPS PO SCH (10:55)
[2018-07-11] MEDS: MEMANTINE HCL 10 MG TABLET (FP) PO SCH ×2 (10:56→21:25)
[2018-07-11] MEDS: POLYETHYLENE GLYCOL 3350 119 GM BTL PO SCH (10:56)
[2018-07-11] MEDS: HEPARIN NA (PORCINE) 5,000 UNITS/ML 1ML VIAL SQ SCH ×2 (10:56→21:25)
--- NOTE | 2018-07-11 11:15 | EKG ---
Test Reason : Blood Pressure : / mmHG Vent. Rate : 088 BPM Atrial Rate : 088 BPM P-R Int : 204 ms QRS Dur : 098 ms QT Int : 364 ms P-R-T Axes : 050 -50 013 degrees QTc Int : 440 ms NORMAL SINUS RHYTHM POSSIBLE LEFT ATRIAL ENLARGEMENT LEFT ANTERIOR FASCICULAR BLOCK LEFT VENTRICULAR HYPERTROPHY ABNORMAL ECG WHEN COMPARED WITH ECG OF 08-JUL-2018 02:16, VENT. RATE HAS DECREASED BY 43 BPM T WAVE VARIATION Confirmed by KARIN BUSTILLOS MD ([id number]) on 07/11/2018 11:14:55 AM Referred By: Confirmed By:KARIN BUSTILLOS MD
--- NOTE | 2018-07-11 11:49 | PN ---
Progress Note (short form) - Note Progress Note: s: no cp, palps, dyspnea, dizziness TEle: sinus 70s - Current Medication List Current Medications Atorvastatin Calcium (Lipitor -) 20 mg PO [facility] Last Admin: 07/10/18 22:10 Dose: 20 mg Clonidine (Catapres -) 0.1 mg PO HS [facility] Last Admin: 07/10/18 22:10 Dose: 0.1 mg Docusate Sodium (Colace Liquid -) 300 mg PO DAILY [facility] Last Admin: 07/11/18 10:55 Dose: 300 mg Heparin Sodium (Porcine) (Heparin -) 5,000 unit SQ BID [facility] Last Admin: 07/11/18 10:56 Dose: 5,000 unit Latanoprost (Xalatan 0.005% Eye Drops -) 1 drop OU [facility] Last Admin: 07/10/18 22:20 Dose: Not Given Memantine (Namenda -) 10 mg PO BID [facility] Last Admin: 07/11/18 10:56 Dose: 10 mg Metoprolol Tartrate (Lopressor -) 25 mg PO TID [facility] Last Admin: 07/11/18 05:33 Dose: 25 mg Polyethylene Glycol (Miralax (For Daily Use) -) 17 gm PO DAILY [facility] Last Admin: 07/11/18 10:56 Dose: 17 gm Senna (Senna -) 2 tab PO [facility] Last Admin: 07/10/18 22:10 Dose: 2 tab - Objective Vital Signs Period Temp Pulse Resp BP Sys/Lane Pulse Ox Last 24 Hr 97.9 F-99.1 F 60-96 16-20 101-166/52-76 99 Constitutional: Yes: No Distress, Calm Eyes: Yes: WNL HENT: Yes: WNL Neck: Yes: WNL Cardiovascular: Yes: Regular Rate and Rhythm Respiratory: Yes: CTA Bilaterally Gastrointestinal: Yes: Normal Bowel Sounds Musculoskeletal: Yes: WNL Extremities: Yes: WNL Edema: No Assessment/Plan 87 year old female pmh of dementia, htn, hld, ppm, brought in from home by daughter for vomiting, with HTN HTN - history of labile HTN - continue home PO clonidine, metoprolol 25 mg TID with holding parameters (at home is on PRN metoprolol for elevated BP) - would discharged on home medication regimen for HTN - would avoid increasing meds as she has history of low BPs and syncope. - BP remains very labile, Receiving PRN Labetelol, continue vomiting - likely in setting of fecal impaction, manage per primary team PPM - stable at last device check HLD - continue statin
--- NOTE | 2018-07-11 13:57 | DS ---
Physical Examination Vital Signs: Vital Signs Temperature 98.3 F 07/11/18 10:00 Pulse Rate 63 07/11/18 10:00 Respiratory Rate 20 07/11/18 10:00 Blood Pressure 142/72 07/11/18 10:00 O2 Sat by Pulse Oximetry (%) 99 07/11/18 09:00 Constitutional: Yes: No Distress, Calm Cardiovascular: Yes: Regular Rate and Rhythm Respiratory: Yes: WNL, Regular, CTA Bilaterally. No: Tachypnea, Wheezes Gastrointestinal: Yes: Normal Bowel Sounds Renal/: Yes: Incontinence Edema: No Neurological: Yes: Alert, Confusion Psychiatric: Yes: Alert Labs: CBC, BMP 07/10/18 06:00 07/10/18 06:00 Discharge Summary Reason For Visit: DEHYDRATION,AMS,FAILURE TO THRIVE Current Active Problems Dehydration (Acute) Dementia (Acute) Fecal impaction in rectum (Acute) Hypertension (Acute) Leukocytosis (Acute) Rebound hypertension (Acute) Vomiting (Acute) Hospital Course: 87 year old female pmh significant for progressive dementia admitted w/ vomiting 2/2 fecal impaction, hypertensive crisis. Suspect hypertensive crisis due to rebound htn from missing clonidine. Pt w/ history of labile bp. Pt received iv labetalol here, Metoprolol TID given, cardiology consult appreciated. Pt's bp adequate controlled and is stable for discharge. Can continue metoprolol prn per cardiology and home dose clonidine. Pt received enemas for fecal impaction. suspect vomiting secondary to impaction. having soft BMs now. repeat KUB scan shows improvement. Pt can continue miralax,senna, colace at home. Pt evaluated by speech, tolerating dysphagia pureed diet without difficulty. Daughter Shannon informed of pt's discharge. f/u as directed. 32 minutes spent in discharge planning Condition: Fair - Instructions Diet, Activity, Other Instructions: dysphagia pureed diet, crush all meds w/ applesauce maintain adequate hydration continue miralax/senna/colace hold iron pill for now, may restart per PCP metoprolol three times a day NEEDED, HOLD IF BP <110/50, please follow directions by cardiology f/u as directed Referrals: Pop Hernandez MD [Primary Care Provider] - 1 Week Thiago Waters MD [Staff Physician] - 1 Week Disposition: VNS/HOME HEALTH CARE - Home Medications Comprehensive Discharge Medication List: Ambulatory Orders Memantine HCl [Namenda -] 10 mg PO BID 11/05/14 Atorvastatin Ca [Lipitor] 20 mg PO HS 06/25/15 Acetaminophen [Tylenol .Regular Strength -] 325 mg PO BID 07/14/16 Brimonidine Tartrate [Alphagan 0.15% -] 1 drop OD BID 07/14/16 Latanoprost 0.005% Eye Drops [Xalatan 0.005% Eye Drops -] 1 drop OU HS 07/14/16 Metoprolol Tartrate 25 mg PO TID PRN 07/14/16 Clonidine HCl 0.1 mg PO HS 07/08/18 Docusate Liquid [Colace Liquid -] 100 mg PO TID #473 ml 07/11/18 Polyethylene Glycol 3350 [Miralax 119 gm Btl -] 17 gm PO DAILY #1 bottle Sennosides [Senna -] 2 tab PO HS #60 tablet 07/11/18
[2018-07-11] MEDS ORDERED: SENNOSIDES 8.6MG TABLET (FP) PO SCH (22:00)
[2018-07-11] MEDS ORDERED: LATANOPROST 0.005% OPHTH SOLN 2.5ML BOTTLE OU SCH (22:00)
[2018-07-11] MEDS ORDERED: ATORVASTATIN CA 20 MG TABLET (FP) PO SCH (22:00)
[2018-07-11] MEDS ORDERED: cloNIDine HCL 0.1 MG TABLET PO SCH (22:00)
[2018-07-12] MEDS: METOPROLOL TARTRATE 25 MG TABLET (FP) PO SCH (06:21)
--- NOTE | 2018-07-12 09:32 | PN ---
Progress Note, [facility] - Note Progress Note: 87 yo female seen at bedside as a follow up to swallow eval by provider Alistair Auguste , [facility] with recommendations of puree and honey thicken liquids. Pt is consuming better than 50% of meals as indicated by chart review. fire extinguisher charger reports no incidents of dysphagia and / or aspiration during meals at this time. Recommendation: continue current diet of dysphagia puree with honey thicken liquids as tolerated. Observe standard aspiration precautions. Crush meds. Results given to fire extinguisher charger and pcp via chart.
--- NOTE | 2018-07-12 09:39 | PN ---
Progress Note (short form) - Note Progress Note: s: awake, alert, appears comfortable. not answering questions appropriately Tele: sinus 70s - Current Medication List Current Medications Atorvastatin Calcium (Lipitor -) 20 mg PO [facility] Last Admin: 07/11/18 21:25 Dose: 20 mg Clonidine (Catapres -) 0.1 mg PO HS [facility] Last Admin: 07/11/18 21:25 Dose: 0.1 mg Docusate Sodium (Colace Liquid -) 300 mg PO DAILY [facility] Last Admin: 07/11/18 10:55 Dose: 300 mg Heparin Sodium (Porcine) (Heparin -) 5,000 unit SQ BID [facility] Last Admin: 07/11/18 21:25 Dose: 5,000 unit Latanoprost (Xalatan 0.005% Eye Drops -) 1 drop OU [facility] Last Admin: 07/11/18 21:25 Dose: 1 drop Memantine (Namenda -) 10 mg PO BID [facility] Last Admin: 07/11/18 21:25 Dose: 10 mg Metoprolol Tartrate (Lopressor -) 25 mg PO TID [facility] Last Admin: 07/12/18 06:21 Dose: 25 mg Polyethylene Glycol (Miralax (For Daily Use) -) 17 gm PO DAILY [facility] Senna (Senna -) 2 tab PO [facility] Last Admin: 07/11/18 21:25 Dose: 2 tab - Objective Vital Signs Period Temp Pulse Resp BP Sys/Lane Pulse Ox Last 24 Hr 96.5 F-98.3 F 63-94 18-20 108-161/57-85 98 Constitutional: Yes: No Distress, Calm Eyes: Yes: WNL HENT: Yes: WNL Neck: Yes: WNL Cardiovascular: Yes: Regular Rate and Rhythm Respiratory: Yes: CTA Bilaterally Gastrointestinal: Yes: Normal Bowel Sounds Musculoskeletal: Yes: WNL Extremities: Yes: WNL Edema: No Assessment/Plan 87 year old female pmh of dementia, htn, hld, ppm, brought in from home by daughter for vomiting, with HTN HTN - history of labile HTN - continue home PO clonidine, metoprolol 25 mg TID with holding parameters (at home is on PRN metoprolol for elevated BP) - would discharge on home medication regimen for HTN - would avoid increasing meds as she has history of low BPs and syncope. vomiting - likely in setting of fecal impaction, manage per primary team PPM - stable at last device check HLD - continue statin
[2018-07-12] MEDS ORDERED: POLYETHYLENE GLYCOL 3350 119 GM BTL PO SCH (10:00)
--- NOTE | 2018-07-12 10:18 | PN ---
Progress Note, Physician Chief Complaint: pt lying in bed in no acute distress. unable to obtain, pt non verbal - Current Medication List Current Medications: Active Medications Atorvastatin Calcium (Lipitor -) 20 mg PO [facility] Last Admin: 07/11/18 21:25 Dose: 20 mg Clonidine (Catapres -) 0.1 mg PO HS [facility] Last Admin: 07/11/18 21:25 Dose: 0.1 mg Docusate Sodium (Colace Liquid -) 300 mg PO DAILY [facility] Last Admin: 07/11/18 10:55 Dose: 300 mg Heparin Sodium (Porcine) (Heparin -) 5,000 unit SQ BID [facility] Last Admin: 07/11/18 21:25 Dose: 5,000 unit Latanoprost (Xalatan 0.005% Eye Drops -) 1 drop OU [facility] Last Admin: 07/11/18 21:25 Dose: 1 drop Memantine (Namenda -) 10 mg PO BID [facility] Last Admin: 07/11/18 21:25 Dose: 10 mg Metoprolol Tartrate (Lopressor -) 25 mg PO TID [facility] Last Admin: 07/12/18 06:21 Dose: 25 mg Polyethylene Glycol (Miralax (For Daily Use) -) 17 gm PO DAILY [facility] Senna (Senna -) 2 tab PO [facility] Last Admin: 07/11/18 21:25 Dose: 2 tab - Objective Vital Signs: Vital Signs Temperature 98.2 F 07/12/18 06:00 Pulse Rate 70 07/12/18 06:00 Respiratory Rate 19 07/12/18 06:00 Blood Pressure 115/57 07/12/18 06:00 O2 Sat by Pulse Oximetry (%) 98 07/11/18 21:00 Constitutional: Yes: No Distress, Calm Cardiovascular: Yes: Regular Rate and Rhythm Respiratory: Yes: WNL, Regular, CTA Bilaterally. No: Accessory Muscle Use, Tachypnea, Wheezes Gastrointestinal: Yes: WNL, Normal Bowel Sounds, Soft. No: Distention, Tenderness Genitourinary: Yes: Incontinence Neurological: Yes: Alert, Confusion Psychiatric: Yes: Alert Labs: CBC, BMP 07/10/18 06:00 07/10/18 06:00 INR, PTT INR 1.08 (0.83-1.09) 07/08/18 02:50 Problem List - Problems (1) Vomiting Code(s): R11.10 - VOMITING, UNSPECIFIED (2) Fecal impaction in rectum Code(s): K56.41 - FECAL IMPACTION (3) Dehydration Code(s): E86.0 - DEHYDRATION (4) Leukocytosis Code(s): D72.829 - ELEVATED WHITE BLOOD CELL COUNT, UNSPECIFIED (5) Rebound hypertension Code(s): I15.8 - OTHER SECONDARY HYPERTENSION (6) Dementia Code(s): F03.90 - UNSPECIFIED DEMENTIA WITHOUT BEHAVIORAL DISTURBANCE Qualifiers: Dementia behavioral disturbance: without behavioral disturbance (7) Hypercholesteremia Code(s): E78.0 - PURE HYPERCHOLESTEROLEMIA * DO NOT USE * (8) Hypertension Code(s): I10 - ESSENTIAL (PRIMARY) HYPERTENSION Qualifiers: Hypertension type: essential hypertension Qualified Code(s): I10 - Essential (primary) hypertension Assessment/Plan Dispo: HOME W/ VNS TODAY
[2018-07-12] MEDS: HEPARIN NA (PORCINE) 5,000 UNITS/ML 1ML VIAL SQ SCH (11:18)
[2018-07-12] MEDS: DOCUSATE NA 100 MG/10 ML UNIT-DOSE CUPS PO SCH (11:18)
[2018-07-12] MEDS: MEMANTINE HCL 10 MG TABLET (FP) PO SCH (11:19)
[2018-07-12 11:46] VITALS: PULSE 63; TEMP 97.5
[2018-07-12 11:52] VITALS: BP 152/80
== END 2018-07-12 11:55 | disposition home health service (06) | DRG 388 ==
LOC: JER 01:42 → JERBED 10:33 → UNDOADMOB 11:30 → JERBED 13:53 → J5S 13:53 → OBSVTOIN 14:25 → INTOOBSV 14:25 → J4S 15:09 → J5S 15:09
PROVIDERS: ADMIT Internal Medicine; ATTEND Internal Medicine
DX: K56.41 Fecal impaction (principal); R53.2 Functional quadriplegia; I16.1 Hypertensive emergency; E11.9 Type 2 diabetes mellitus without complications; E78.5 Hyperlipidemia, unspecified; I10 Essential (primary) hypertension; Z95.0 Presence of cardiac pacemaker; F03.90 Unspecified dementia, unspecified severity, without behavioral disturbance, psychotic disturbance, mood disturbance, and anxiety; E86.0 Dehydration; E78.00 Pure hypercholesterolemia, unspecified; I35.0 Nonrheumatic aortic (valve) stenosis; I36.1 Nonrheumatic tricuspid (valve) insufficiency; K52.9 Noninfective gastroenteritis and colitis, unspecified; Z74.01 Bed confinement status
CPT/HCPCS: 36415; 70450-TC; 71045-TC-FY; 74018-TC-FY; 74176-TC; 80053; 81003; 82550; 82803; 83605; 83735; 84100; 84484; 85025; 85610; 87040; 87086; 87186; 93005; 93010; 99283-25; G0378; J0131; J0735; J1644; J7030